=== PATIENT | female | born 1960 | race Caucasian/White ===

== ENCOUNTER 2022-03-20 09:28 | Emergency (ER) | payer BC ==
[2022-03-20 10:54] LABS: ANION GAP 13.6 mEq/L (7-13)
[2022-03-20] MEDS ORDERED: Potassium Chloride Riders 10 MEQ in Premix Bag 1 BAG IV ONE ×2 (11:00→14:42)
[2022-03-20] MEDS ORDERED: cefTRIAXone 1 GM in Sodium Chloride 0.9% 50 ML IV ONE (11:08)
[2022-03-20] MEDS ORDERED: Sodium Chloride 0.9% 1,000 ML IV ONE (11:26)
== END 2022-03-20 15:45 ==
LOC: DL.ED 09:28
DX: J90 Pleural effusion, not elsewhere classified (principal); E87.6 Hypokalemia; Z86.16 Personal history of COVID-19; Z20.822 Contact with and (suspected) exposure to COVID-19
CPT/HCPCS: 36415; 71045; 80053; 83605; 83880; 84484; 85025; 87040; 87635; 93005; 93010; 96365; 96366; 96368; 99285; J0696; J3480; J7030; U0002

== ENCOUNTER 2025-04-25 05:36 | Emergency (ER) | payer BC ==
[2025-04-25] MEDS: Lactated Ringers 1,000 ML IV SCH (06:00)
[2025-04-25] MEDS: Ondansetron 4 MG/2 ML SDV IVPUSH ONE ×2 (06:00→07:44)
[2025-04-25 06:02] LABS: PLATELET COUNT,PLT 307 10^3/uL (150-450); RED BLOOD CELL COUNT 3.80 10^6/uL (4.2-5.4); WHITE BLOOD CELL COUNT,WBC 8.8 10^3/uL (5.0-10.0)
[2025-04-25 06:13] LABS: LYMPHOCYTES PERCENT AUTO 25.1 % (20.5-50.1); MONOCYTES PERCENT AUTO 15.3 % (2-8); NEUTROPHILS PERCENT AUTO 58.9 % (42.2-75.2)
[2025-04-25 06:14] LABS: BASOPHILS PERCENT AUTO 0.6 % (0.0-1.0); EOSINOPHILS PERCENT AUTO 0.1 % (1.0-3.0)
[2025-04-25 06:22] LABS: A/G RATIO 1.1; ALANINE AMINOTRANSFERASE,ALT 69.0 U/L (14-59); ASPARTATE AMNIOTRANSFERASE,AST 95.0 U/L (15-37); BILIRUBIN TOTAL 1.4 mg/dL (0.2-1.0); BLOOD UREA NITROGEN,BUN 3.0 mg/dL (7-18); CARBON DIOXIDE,CO2 25.0 mmol/L (21-32); CHLORIDE,CL 89.0 mmol/L (98-107); CREATININE 0.45 mg/dL (0.55-1.02); EST CRCL DRUG DOSING (CG) 117.28 mL/min; GLUCOSE RANDOM 106.0 mg/dL (70-99); PROTEIN TOTAL,TP 7.6 g/dL (6.4-8.2); SODIUM,NA 131.0 mmol/L (136-145)
[2025-04-25 06:31] LABS: ESTIMATED GFR 108.0 mL/min (>=60); POTASSIUM,K 2.3 mmol/L (3.5-5.1)
[2025-04-25 06:39] LABS: BAND PERCENT MAN 3 %; LYMPHOCYTES PERCENT MAN 27 % (20-50); MONOCYTES PERCENT MAN 11 % (2-8); SEG NEUTROPHILS PERCENT MAN 59 % (42-75)
[2025-04-25] MEDS ORDERED: Magnesium Sulfate 2 GM/50 mL 2 GM in Premix Bag 1 BAG IV SCH (06:45)
[2025-04-25] MEDS: Potassium Chloride 20 MEQ in Premix Bag 1 BAG IV ONE (06:53)
[2025-04-25] MEDS: Magnesium Sulfate 2 GM/50 mL 2 GM in Premix Bag 1 BAG IV ONE (06:53)
[2025-04-25 07:03] LABS: APPEARANCE,URINE SLIGHTLY CLOUDY (CLEAR); GLUCOSE,URINE NEGATIVE (NEGATIVE); OCCULT BLOOD,URINE TRACE-INTACT (NEGATIVE)
[2025-04-25 07:45] LABS: EPITHELIAL CELLS,URINE MODERATE /HPF (NOT SEEN)
[2025-04-25] MEDS: Potassium Chloride 10% 20 MEQ/15 ML Soln 15 ML UD Cup PO STA (09:27)
[2025-04-25] MEDS: Potassium Chloride 10 MEQ Tab.ER PO ONE ×2 (09:30→10:57)
== END 2025-04-25 11:00 | disposition home or self-care (01) ==
LOC: DL.ED 05:36
DX: N30.00 Acute cystitis without hematuria (principal); E87.6 Hypokalemia; Z86.16 Personal history of COVID-19
CPT/HCPCS: 36415; 80053; 81001; 82947; 83735; 84484; 85025; 85379; 87086; 93005; 96361; 96365; 96366; 96368; 96375; 96376; 99284; A9270; J0696; J2405; J2765; J3475; J3480; J7120; 93010

== ENCOUNTER 2025-04-27 14:34 | Inpatient (IN) | payer BC ==
[2025-04-27] MEDS ORDERED: Sodium Chloride 0.9% 10 ML Syringe FLUSH PRN (14:40)
[2025-04-27] MEDS: Ondansetron 4 MG/2 ML SDV IVPUSH ONE (14:48)
[2025-04-27 15:08] LABS: A/G RATIO 1.1; ALANINE AMINOTRANSFERASE,ALT 59.0 U/L (14-59); ASPARTATE AMNIOTRANSFERASE,AST 69.0 U/L (15-37); BILIRUBIN TOTAL 2.7 mg/dL (0.2-1.0); BLOOD UREA NITROGEN,BUN 6.0 mg/dL (7-18); CARBON DIOXIDE,CO2 19.0 mmol/L (21-32); CREATININE 0.58 mg/dL (0.55-1.02); EST CRCL DRUG DOSING (CG) 91.99 mL/min; GLUCOSE RANDOM 110.0 mg/dL (70-99); PROTEIN TOTAL,TP 7.8 g/dL (6.4-8.2)
[2025-04-27 15:15] LABS: PLATELET COUNT,PLT 234 10^3/uL (150-450); RED BLOOD CELL COUNT 3.54 10^6/uL (4.2-5.4); WHITE BLOOD CELL COUNT,WBC 7.2 10^3/uL (5.0-10.0)
[2025-04-27 15:16] LABS: BASOPHILS PERCENT AUTO 0.3 % (0.0-1.0); EOSINOPHILS PERCENT AUTO 0.1 % (1.0-3.0); LYMPHOCYTES PERCENT AUTO 8.6 % (20.5-50.1); MONOCYTES PERCENT AUTO 16.7 % (2-8); NEUTROPHILS PERCENT AUTO 74.3 % (42.2-75.2)
[2025-04-27 15:19] LABS: CHLORIDE,CL 73.0 mmol/L (98-107); POTASSIUM,K 2.7 mmol/L (3.5-5.1)
[2025-04-27 15:25] LABS: SODIUM,NA 112.0 mmol/L (136-145)
[2025-04-27 15:26] LABS: ESTIMATED GFR 102.0 mL/min (>=60)
[2025-04-27] MEDS: Iopamidol 612 MG/ML 100 ML Bottle IVPUSH ONE (15:42)
[2025-04-27 15:55] LABS: LYMPHOCYTES PERCENT MAN 6 % (20-50); MONOCYTES PERCENT MAN 14 % (2-8); SEG NEUTROPHILS PERCENT MAN 80 % (42-75)
[2025-04-27] MEDS: Magnesium Sulfate 2 GM/50 mL 2 GM in Premix Bag 1 BAG IV ONE (15:55)
[2025-04-27] MEDS: Potassium Chloride 20 MEQ in Premix Bag 1 BAG IV ONE ×2 (15:55→17:51)
[2025-04-27 18:08] LABS: BLOOD UREA NITROGEN,BUN 5.0 mg/dL (7-18); CARBON DIOXIDE,CO2 21.0 mmol/L (21-32); CHLORIDE,CL 83.0 mmol/L (98-107); CREATININE 0.44 mg/dL (0.55-1.02); EST CRCL DRUG DOSING (CG) 121.26 mL/min; GLUCOSE RANDOM 93.0 mg/dL (70-99); POTASSIUM,K 3.4 mmol/L (3.5-5.1)
[2025-04-27 18:16] LABS: ESTIMATED GFR 109.0 mL/min (>=60); SODIUM,NA 119.0 mmol/L (136-145)
[2025-04-27] MEDS ORDERED: Sennosides/Docusate Sodium 50-8.6 MG Tab PO PRN (19:18)
[2025-04-27] MEDS ORDERED: Ondansetron 4 MG/2 ML SDV IVPUSH PRN (21:00)
[2025-04-27] MEDS: VALACYCLOVIR PO ONE (22:19)
[2025-04-27] MEDS: Non-Formulary Medication 1 Each (Valacyclovir Hcl [Valtrex] 500 MG Tablet) PO SCH (23:14)
[2025-04-28 06:38] LABS: BASOPHILS PERCENT AUTO 0.1 % (0.0-1.0); EOSINOPHILS PERCENT AUTO 0.3 % (1.0-3.0); LYMPHOCYTES PERCENT AUTO 13.9 % (20.5-50.1); MONOCYTES PERCENT AUTO 20.8 % (2-8); NEUTROPHILS PERCENT AUTO 64.9 % (42.2-75.2); PLATELET COUNT,PLT 246 10^3/uL (150-450); RED BLOOD CELL COUNT 3.53 10^6/uL (4.2-5.4); WHITE BLOOD CELL COUNT,WBC 7.6 10^3/uL (5.0-10.0)
[2025-04-28 07:10] LABS: A/G RATIO 1.1; ALANINE AMINOTRANSFERASE,ALT 48.0 U/L (14-59); ASPARTATE AMNIOTRANSFERASE,AST 65.0 U/L (15-37); BILIRUBIN TOTAL 2.0 mg/dL (0.2-1.0); BLOOD UREA NITROGEN,BUN 5.0 mg/dL (7-18); CARBON DIOXIDE,CO2 25.0 mmol/L (21-32); CHLORIDE,CL 90.0 mmol/L (98-107); CREATININE 0.45 mg/dL (0.55-1.02); EST CRCL DRUG DOSING (CG) 116.09 mL/min; GLUCOSE RANDOM 91.0 mg/dL (70-99); POTASSIUM,K 3.2 mmol/L (3.5-5.1); PROTEIN TOTAL,TP 6.7 g/dL (6.4-8.2); SODIUM,NA 130.0 mmol/L (136-145)
[2025-04-28 07:14] LABS: ESTIMATED GFR 108.0 mL/min (>=60)
[2025-04-28] MEDS: Potassium Chloride 10 MEQ Tab.ER PO SCH (08:17)
[2025-04-28 14:11] LABS: T4 FREE 1.17 ng/dL (0.76-1.46); TSH ULTRASENSITIVE 5.3 uIU/mL (0.36-3.74)
[2025-04-29 06:56] LABS: BASOPHILS PERCENT AUTO 0.4 % (0.0-1.0); EOSINOPHILS PERCENT AUTO 1.2 % (1.0-3.0); LYMPHOCYTES PERCENT AUTO 15.3 % (20.5-50.1); MONOCYTES PERCENT AUTO 20.9 % (2-8); NEUTROPHILS PERCENT AUTO 62.2 % (42.2-75.2); PLATELET COUNT,PLT 190 10^3/uL (150-450); RED BLOOD CELL COUNT 3.37 10^6/uL (4.2-5.4); WHITE BLOOD CELL COUNT,WBC 4.8 10^3/uL (5.0-10.0)
[2025-04-29 07:03] LABS: A/G RATIO 1.1; ALANINE AMINOTRANSFERASE,ALT 47.0 U/L (14-59); ASPARTATE AMNIOTRANSFERASE,AST 87.0 U/L (15-37); BILIRUBIN TOTAL 1.5 mg/dL (0.2-1.0); BLOOD UREA NITROGEN,BUN 5.0 mg/dL (7-18); CARBON DIOXIDE,CO2 30.0 mmol/L (21-32); CREATININE 0.51 mg/dL (0.55-1.02); EST CRCL DRUG DOSING (CG) 102.44 mL/min; GLUCOSE RANDOM 108.0 mg/dL (70-99); POTASSIUM,K 2.5 mmol/L (3.5-5.1); PROTEIN TOTAL,TP 6.5 g/dL (6.4-8.2); SODIUM,NA 137.0 mmol/L (136-145)
[2025-04-29 07:07] LABS: CHLORIDE,CL 97.0 mmol/L (98-107)
[2025-04-29 07:08] LABS: ESTIMATED GFR 105.0 mL/min (>=60)
[2025-04-29] MEDS: Potassium Chloride 20 MEQ in Premix Bag 1 BAG IV ONE (07:48)
[2025-04-29] MEDS: Potassium Chloride 10 MEQ Tab.ER PO SCH (07:50)
[2025-04-29] MEDS: Phosphorus #1 250 MG Tab PO SCH (09:20)
[2025-04-29 09:48] LABS: IRON,FE 192.0 ug/dL (50-170); PERCENT FE SATURATION 92.3 % (20.0-50.0)
[2025-04-29 10:02] LABS: FOLIC ACID 4.2 ng/mL (8.6-58.9)
[2025-04-29] MEDS: Potassium Chloride 10 MEQ Tab.ER PO ONE (13:09)
== END 2025-04-29 15:50 | disposition home or self-care (01) | DRG 426 ==
LOC: DL.ED 14:34 → DL.MS 18:00 → DL.ED 18:11
PROVIDERS: ADMIT Student in an Organized Health Care Education/Training Program; ATTEND Student in an Organized Health Care Education/Training Program
DX: E87.1 Hypo-osmolality and hyponatremia (principal); E87.6 Hypokalemia; N30.00 Acute cystitis without hematuria; I10 Essential (primary) hypertension; F41.9 Anxiety disorder, unspecified; E86.0 Dehydration; E83.42 Hypomagnesemia; K21.9 Gastro-esophageal reflux disease without esophagitis; E87.20 Acidosis, unspecified; E53.8 Deficiency of other specified B group vitamins; Z79.899 Other long term (current) drug therapy; Z86.16 Personal history of COVID-19
CPT/HCPCS: 36415; 74177; 80048; 80053; 82248; 82607; 82728; 82746; 83540; 83550; 83605; 83690; 83735; 84100; 84132; 84295; 84300; 84439; 84443; 85025; 85379; 87426-QW; 93005; 93010; 94010; 96361; 96365; 96366; 96368; 96375; 99223; 99232; 99238; 99284; 99285-25; A9270-GY; J0696; J2405; J2765; J3475; J3480; J7030; J7131; Q9967